=== PATIENT | female | born 1955 | race African-American/Black ===

== ENCOUNTER 2016-12-18 14:48 | Emergency (ER) | payer OTHER ==
[~2016-12-18] VITALS: Ht 165.1 cm; Wt 72.6 kg
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
--- NOTE | 2016-12-18 16:29 | NUR ---
Patient discharged to home in stable condition. Written and verbal after care instructions given. Patient verbalizes understanding of instruction. AMBULATORY WITH STEADY GAIT.
[2016-12-18 16:30] VITALS: BP 151/78
== END 2016-12-18 16:31 | disposition home or self-care (01) ==
LOC: ER 14:51
DX: S09.90XA Unspecified injury of head, initial encounter (principal); S16.1XXA Strain of muscle, fascia and tendon at neck level, initial encounter; R51 Headache; R42 Dizziness and giddiness; R11.0 Nausea; Z91.018 Allergy to other foods; V43.62XA Car passenger injured in collision with other type car in traffic accident, initial encounter; Y93.89 Activity, other specified; Y92.89 Other specified places as the place of occurrence of the external cause; Y99.9 Unspecified external cause status
CPT/HCPCS: 70450; 72125; 99284; A4606; Z7610